=== PATIENT | female | born 1940 | race Caucasian/White ===

== ENCOUNTER → 2017-03-04 | Day surgery (SDC) | payer MEDICARE, BC ==
[~2017-03-04] MED LIST: ATENOLOL50 MG PO; DITROPAN5 MG PO; FLUOXETINE HCL20 M1 PO; LOVENOX100 MG/1 M SUBQ; MACRODANTIN50 MG PO; OMEPRAZOLE20 M2 PO; SIMVASTATIN40 MG PO; VESICARE PO; WARFARIN SODIUM2 M1 PO
--- NOTE | ~2017-03-04 | OR ---
Unit #: [id number] #: [id number] Patient: ALEJANDRO SPRINGER [id number] [facility] [address] [place], [place] [address] [id number] O MR#: [id number] NAME: ALEJANDRO SPRINGER. ROOM: Date of Procedure: 03/04/2017 Admission Date: 03/04/2017 Surgeon: Bennie Quintana M.D. : 1940 Attending Physician: Bennie Quintana M.D. Primary Care Physician: Cathy Tolliver M.D. PROCEDURE OPERATIVE NOTE PREOPERATIVE DIAGNOSIS Abnormal colon on CT scan. POSTOPERATIVE DIAGNOSIS Diverticulosis. PROCEDURE PERFORMED Colonoscopy to cecum. SURGEON Bennie Quintana M.D. ANESTHESIA Monitored. INDICATIONS 76-year-old female was recently hospitalized at [facility] for presumed diverticulitis. She responded appropriately to antibiotics but on CT scan there was some thickening in the transverse colon that was read as possible malignancy. The patient had not had any hematochezia. PROCEDURE The patient was admitted to [facility], positively identified and transported to the endoscopy suite. After appropriate monitoring and positioning, she was sedated by the anesthesiologist. Rectal examination was unremarkable. The colonoscope was passed through the anal verge throughout the extent of the colon to the cecum. The appendiceal orifice and ileocecal valve were photo documented. On antegrade and retrograde visualization, she had diverticulosis from the sigmoid colon to the mid transverse colon. However, no other pathological findings were noted. Her mucosa was normal throughout. There were no polyps or masses and no evidence of malignancy. There was no internal hemorrhoidal disease. The patient tolerated the procedure well and was transported to Recovery in stable condition. Findings were discussed with her family. She can go back on her regular dose of Coumadin today and she should not require colorectal cancer screening for another ten years unless she has symptoms in the interim. Dictated by... Unit #: [id number] #: [id number] Patient: ALEJANDRO SPRINGER Bennie Quintana M.D. MIRACLE/niesha TD: 03/04/2017 09:19 JOB #: [id number] PROCEDURE OPERATIVE NOTE Page 1 of 1 X Bennie Quintana MD PROCEDURE OPERATIVE NOTE
== END | disposition home or self-care (01) ==
LOC: COPS 06:03
DX: K57.30 Diverticulosis of large intestine without perforation or abscess without bleeding (principal); E66.01 Morbid (severe) obesity due to excess calories; K21.9 Gastro-esophageal reflux disease without esophagitis; Z68.41 Body mass index [BMI] 40.0-44.9, adult; Z87.440 Personal history of urinary (tract) infections; Z88.2 Allergy status to sulfonamides; Z88.8 Allergy status to other drugs, medicaments and biological substances; Z79.01 Long term (current) use of anticoagulants; Z79.899 Other long term (current) drug therapy; Z90.49 Acquired absence of other specified parts of digestive tract; Z90.89 Acquired absence of other organs